=== PATIENT | male | born 1995 | race African-American/Black ===

== ENCOUNTER 2018-06-14 05:17 | Emergency (ER) | payer OTHER ==
[~2018-06-14] VITALS: Ht 170.2 cm; Wt 72.6 kg
--- NOTE | 2018-06-14 05:42 | NUR ---
PT BIB SELF, COMPLAINING OF CP. 09/20. CRUSHING, NOT RADIATING LOCALIZE IN THE CHEST AREA. PAIN STARTED 2HOUR AGO.
[2018-06-14] MEDS ORDERED: ONDANSETRON 4 MG TAB.RAPDIS ONE (07:27)
[2018-06-14] MEDS ORDERED: ONDANSETRON 4 MG TAB.RAPDIS PO ONE (07:30)
--- NOTE | 2018-06-14 07:30 | NUR ---
report received from Theo ELAINE for micah
--- NOTE | 2018-06-14 07:47 | NUR ---
Patient discharged to home in stable condition. Written and verbal after care instructions given. Patient verbalizes understanding of instruction.
[2018-06-14 07:50] VITALS: BP 134/70
== END 2018-06-14 07:51 | disposition home or self-care (01) ==
LOC: ER 05:19
DX: R07.89 Other chest pain (principal)
CPT/HCPCS: 71045; 82962; 93005; 99283; Q0162

== ENCOUNTER 2019-12-12 12:05 | Emergency (ER) | payer OTHER ==
[~2019-12-12] VITALS: Ht 167.6 cm; Wt 68.0 kg
[2019-12-12 12:10] VITALS: BP 118/61
== END 2019-12-12 12:46 | disposition home or self-care (01) ==
LOC: ER 12:13
DX: K64.4 Residual hemorrhoidal skin tags (principal)